=== PATIENT | male | born 1975 | race Caucasian/White ===

== ENCOUNTER 2016-09-25 08:53 | Emergency (ER) | payer BC | END 2016-09-25 11:55 | disposition home or self-care (01) | LOC: ER1 08:53 | DX: K64.5 Perianal venous thrombosis (principal); K64.8 Other hemorrhoids; Z90.89 Acquired absence of other organs | CPT/HCPCS: 99283; Q0162 ==

== ENCOUNTER → 2021-02-24 | Outpatient (CLI) | payer BC | LOC: HEART CORB 12:21 | DX: R10.13 Epigastric pain (principal); R10.11 Right upper quadrant pain ==